=== PATIENT | female | born 1985 | race Caucasian/White ===

== ENCOUNTER 2017-08-07 13:24 | Emergency (ER) | payer SELFPAY ==
[2017-08-07 13:36] VITALS: TEMP 36.6
--- NOTE | 2017-08-07 14:29 | DIAGNOSTIC IMAGING REPORT ---
L FOOT MIN 3 VIEWS ROUTINE CLINICAL HISTORY: Left foot pain.] For fracture. COMPARISON: Left foot radiographs July 19, 2012. FINDINGS: There is a healed fracture of the mid to distal shaft of the left fifth metatarsal. A 5 mm sclerotic lesion within the navicular is unchanged. This is benign. No acute fracture is identified. Tarsometatarsal joints are intact. There is mild posterior and plantar calcaneal spurring. IMPRESSION: 1. No acute fracture or dislocation within the left foot. 2. Healed left fifth metatarsal fracture. 3. Mild posterior and plantar calcaneal spurring. Electronically signed by: Fady Mckinnon M.D. 08/07/2017 2:28 PM Dictated Date/Time: 08/07/2017 2:26 PM
--- NOTE | 2017-08-07 14:44 | EMERGENCY ROOM VISIT NOTE ---
ED Visit Note First contact with patient: 14:05 CHIEF COMPLAINT: Left foot pain HISTORY of present illness: This 32-year-old female presents the ER with chief complaint of left foot pain. The patient states that she was walking on Wednesday and all of a sudden got a sharp pain across the top of her foot. The patient states it hurts to bear weight. The patient went to [facility] on where they did an x-ray stated it was negative and placed her in a postop shoe. The patient states it is not getting any better. The patient does admit to a prior fracture to the foot. The patient has been taking Tylenol without any relief of the pain. The patient cannot have ibuprofen since she had a gastric bypass. REVIEW OF SYSTEMS: 6 system review was performed and was negative unless stated otherwise in history of present illness. PMH: The patient is healthy; gastric bypass, cholecystectomy, , migraines, spinal stenosis, anemia, mouth or patient, SOCIAL HISTORY: The patient admits to tobacco use and occasional alcohol use. PHYSICAL EXAM: Vital Signs: Were reviewed Reviewed Nurse's notes. GENERAL: 32- year-old white female appears in no acute distress. MENTAL Status: Alert and oriented 3. LEFT Foot: No gross bony deformity noted. No erythema or edema noted. The patient is tender to palpation over both the plantar and dorsal aspect of the metatarsal region. Increased pain with squeezing the metatarsals. Full range of motion of the digits without any difficulty. EMERGENCY DEPARTMENT COURSE: The patient was evaluated. X-ray of the foot was ordered through triage and was interpreted by the radiologist as below. DIAGNOSTICS:L FOOT MIN 3 VIEWS ROUTINE CLINICAL HISTORY: Left foot pain.] For fracture. COMPARISON: Left foot radiographs July 19, 2012. FINDINGS: There is a healed fracture of the mid to distal shaft of the left fifth metatarsal. A 5 mm sclerotic lesion within the navicular is unchanged. This is benign. No acute fracture is identified. Tarsometatarsal joints are intact. There is mild posterior and plantar calcaneal spurring. IMPRESSION: 1. No acute fracture or dislocation within the left foot. 2. Healed left fifth metatarsal fracture. 3. Mild posterior and plantar calcaneal spurring. Electronically signed by: Fady Mckinnon M.D. 08/07/2017 2:28 PM Dictated Date/Time: 08/07/2017 2:26 PM The patient was informed of the findings. The patient was discharged home in stable condition. TREATMENT: Ice and elevation for one day. Take Tylenol as needed for pain. Take [place] as needed for more severe pain. Do not take Tylenol while you're taking the [place]. Do not drive while taking the [place]. Recommend wearing a shoe with a good arch support. Ice her foot after standing or walking for any distance. If symptoms persist, follow-up with your family doctor for referral to orthopedics. DIAGNOSIS: Metatarsalgia left foot Allergies Coded Allergies: CI Pigment Blue 63 (Unverified Allergy, Unknown, RASH, DIGS SELF OPEN , ) Duloxetine (Unverified Allergy, Unknown, RASH, DIGS SELF OPEN , 09/13/16) Tramadol (Unverified Allergy, Unknown, HIVES , 09/13/16) Vital Signs Date Time Temp Pulse Resp B/P (MAP) Pulse Ox O2 Delivery O2 Flow Rate FiO2 08/07/17 13:36 36.6 76 20 168/140 94 Room Air Departure Information Referrals Keeley Becker M.D. (PCP) Patient Instructions My [facility]
[2017-08-07] MEDS ORDERED: HYDR-5688 PO (14:46)
[2017-08-07 14:59] VITALS: BP 177/110; PULSE 98; O2SAT 100
== END 2017-08-07 15:00 | disposition home or self-care (01) ==
LOC: C.EDB 13:26 → C.EDD 15:00
DX: M77.42 Metatarsalgia, left foot (principal); Z87.81 Personal history of (healed) traumatic fracture; F17.200 Nicotine dependence, unspecified, uncomplicated

== ENCOUNTER 2018-04-12 17:27 | Emergency (ER) | payer OTHER ==
[~2018-04-12] VITALS: Ht 162.6 cm; Wt 82.8 kg
[~2018-04-12 17:27] MED LIST: BACL10TA PO; DICY10CA12 PO; ELET40TA PO; ESCI1TAB10 PO; LEVE500T13 PO
[2018-04-12 17:39] VITALS: TEMP 36.9; Ht 162.6 cm; Wt 82.8 kg
[2018-04-12] MEDS ORDERED: NAPR-22 PO (18:17)
[2018-04-12] MEDS ORDERED: ELET40TA PO (18:17)
[2018-04-12] MEDS ORDERED: ESCI5TAB PO (18:17)
[2018-04-12 19:00] VITALS: BP 115/76; PULSE 88; O2SAT 96
--- NOTE | 2018-04-12 19:34 | EMERGENCY ROOM VISIT NOTE ---
History Report prepared by Grace: Yessy Isabel Under the Supervision of: Dr. Tavia August M.D. First contact with patient: 17:38 Chief Complaint: PELVIC PAIN Stated Complaint: SEVERE PELVIC PAIN History of Present Illness The patient is a 33 year old female who presents to the Emergency Room with complaints of intermittent pelvic pain starting 1.5 years ago. The patient states that her pain has been getting worse and to the point that she is passing out from it being so bad. She notes that yesterday she passed out while standing up and fell. She states that she woke up on the floor and had back pain. The patient states that she has been seen by her OB-PROPERTY ANALYST in [place] for this and they have run a few tests. She states that she had STD tests and endometrial biopsies that were negative. She notes that she had a pelvic exam done yesterday by them that was normal. She reports that she is scheduled for a D&C next month. She reports that she was told to come to the ED if she continues to pass out from the pain. The patient states that she has been taking Extra Strength Tylenol in mass amount and her Baclofen as prescribed. She notes that it is for her chronic back problems. She notes that she has not taken any NSAIDS due to a gastric bypass. The patient complains of not being able to sleep or eat. The patient denies urinary symptoms, irregular bowel movements, and the chance of . She notes that all her scratches are because she scratches herself in her sleep and she has some allergies to medications. Source of History: patient Onset: 1.5 years ago Position: pelvis Timing: intermittent Modifying Factors (Relieving): tylenol, other (Baclofen) Associated Symptoms: + LOC, + back pain, No urinary symptoms Note: The patient complains of not being able to eat or sleep. The patient denies irregular bowel movements. Review of Systems See HPI for pertinent positives & negatives. A total of 10 systems reviewed and were otherwise negative. Past Medical & Surgical Medical Problems: (1) Anemia (2) Bulging discs (3) Degenerative disc disease (4) Nicotine Dependence, Unspecified, Uncomplicated Surgical Problems: (1) History of delivery (2) History of cholecystectomy (3) History of gastric bypass (4) Hx of gastric bypass Family History FH: heart disease Hypertension Social History Smoking Status: Current Every Day Smoker Alcohol Use: none Drug Use: none Marital Status: single Housing Status: lives with family Occupation Status: unemployed Current/Historical Medications Scheduled Escitalopram Oxalate (Lexapro), 5 MG PO DAILY Naproxen (Naprosyn), 500 MG PO BID Scheduled PRN Baclofen (Lioresal), 10 MG PO TID PRN for Pain Eletriptan (Relpax), 40 MG PO DIRECTED PRN for onset of headache Allergies Coded Allergies: CI Pigment Blue 63 (Unverified Allergy, Unknown, RASH, DIGS SELF OPEN , ) Duloxetine (Unverified Allergy, Unknown, RASH, DIGS SELF OPEN , 04/12/18) Tramadol (Unverified Allergy, Unknown, HIVES , 04/12/18) Physical Exam Vital Signs Date Time Temp Pulse Resp B/P (MAP) Pulse Ox O2 Delivery O2 Flow Rate FiO2 04/12/18 19:00 88 20 115/76 96 Room Air 04/12/18 17:39 36.9 107 20 184/88 96 Room Air Physical Exam Vital signs reviewed. General: Odor of tobacco. Well-appearing, in no significant distress. HEENT: No scleral icterus, PERRLA, neck supple. Atraumatic. Cardiovascular: Regular rate and rhythm, no extra sounds. Pulmonary: Clear to auscultation bilaterally, normal work of breathing. Abdomen: Soft, mildly tender to palpation over the suprapubic region without specific point tenderness, rebound, or guarding. Nondistended, positive bowel sounds. Musculoskeletal: Atraumatic, no peripheral edema. Tenderness to palpation over the sacrum without ecchymosis or swelling. Toe touch is somewhat limited by discomfort to the lower back. Neurologic: Patient awake alert and oriented x 3, Ambulates without difficulty. Skin: Warm, dry. Multiple skin-picking lesions of different stages of healing to the upper back, right arm, upper chest, face, and bilateral legs. Medical Decision & Procedures Laboratory Results Test 04/12/18 17:52 Urine Color YELLOW Urine Appearance CLEAR (CLEAR) Urine pH 6.0 (4.5-7.5) Urine Specific [place] 1.003 (1.000-1.030) Urine Protein NEG (NEG) Urine Glucose (UA) NEG (NEG) Urine Ketones NEG (NEG) Urine Occult Blood NEG (NEG) Urine Nitrite NEG (NEG) Urine Bilirubin NEG (NEG) Urine Urobilinogen NEG (NEG) Urine Leukocyte Esterase NEG (NEG) Urine Test NEG (NEG) Urine Opiates Screen NEG (NEG) Urine Methadone, Qualitative NEG (NEG) Urine Barbiturates NEG (NEG) Urine Phencyclidine (PCP) Level NEG (NEG) Ur Amphetamine/Methamphetamine NEG (NEG) MDMA (Ecstasy) Screen NEG (NEG) Urine Benzodiazepines Screen NEG (NEG) Urine Cocaine Metabolite NEG (NEG) Urine Marijuana (THC) NEG (NEG) Laboratory results per my review. ED Course 1748: Past medical records reviewed. The patient was evaluated in room A4B. A complete history and physical examination was performed. 1756: I reviewed the patient's past records at this time. The patient was seen in the ED at [place] on February 19 and March 13. She was given a Percocet pack on the . She was seen again in the ED on March 18 and March 25. She was given Dilaudid or Toradol with each of her visits. She returned again to the ED on April 09 and had a pelvic ultrasound done. It showed free fluid in the cul de sac most likely physiological, a dominant left ovarian cyst or follicle, no evidence of torsion, and a normal appearance of her uterus. Her U-Tox was positive for Oxycodone only. She told the ED doctor at that time that she was using an excessive amounts of NSAIDS. She filled 12 tabs of Oxycodone 3 days ago. She went to her OB-PROPERTY ANALYST in [place] yesterday and had a pelvic exam performed per the patient. 1858: Upon reevaluation, the patient appeared to have improvement of her symptoms. I discussed findings with her. She verbalized agreement of the treatment plan. The patient was discharged home. Medical Decision Differential diagnoses include endometriosis, ovarian cyst, STD, ectopic , adhesions, menestrual pain, bony fractures, contusion. This patient was evaluated and appeared to be in some discomfort. Physical examination is fairly unrevealing. The patient is status post gastric bypass, now with the pelvic pain for the better part of 2 years. Patient has been at the [place] emergency department multiple times. She was there 3 days ago and given a prescription for Percocet, 12 tablets. The patient has had several ultrasounds of the pelvis performed there without any acute findings. She was seen by her [facility] P[employer] OPERATOR yesterday. Patient states she is having difficulty with pain control as her G[employer] P[employer] OPERATOR will not write for narcotics and she is not able to see pain management "because she does not have a diagnosis." At this time I do not think it is appropriate to give the patient any further narcotic therapy. She is ambulatory without difficulty. She has not lost control of her bowels or her bladder. She has some mild tenderness over the sacrum. The patient's skin picking lesions are concerning and I feel that her facility and physician shopping from >30 min drive away may represent narcotic seeking behavior. The patient was referred back to her physician and advised that it is not appropriate for the emergency department to continue narcotic therapy. She was discharged and was advised to return to the ED for worsening of symptoms or any medical concerns. [place] Drug Monitoring Program Search Results: patient reviewed within database Drug Monitoring Findings: Concerning for multiple Oxycodone prescriptions in the last 8 months. Medication Reconcilliation Current Medication List: was personally reviewed by me Blood Pressure Screening Patient's blood pressure: Elevated blood pressure Blood pressure disposition: Elevated BP felt to be situational Impression Primary Impression: Chronic pelvic pain in female Scribe Attestation The scribe's documentation has been prepared under my direction and personally reviewed by me in its entirety. I confirm that the note above accurately reflects all work, treatment, procedures, and medical decision making performed by me. Departure Information Dispostion Home / Self-Care Referrals Yevgeniy Garcia DO (PCP) Forms HOME CARE DOCUMENTATION FORM, IMPORTANT VISIT INFORMATION, WORK / SCHOOL INSTRUCTIONS Patient Instructions My [facility] Additional Instructions Diagnosis: Pelvic pain, chronic Please tylenol only as directed, no more than 3 gm/24 hours. Take 1000 mg every 6-8 hours as needed for pain. Do not use ibuprofen more than occasionally as you have had gastric bypass. Consider warm compresses to the lower abdomen. Follow up with your OBGYN for further management. Return to the ED for worsening of symptoms or any medical concerns.
== END 2018-04-12 19:14 | disposition home or self-care (01) ==
LOC: C.EDB 17:29 → C.EDA 19:14
DX: R10.2 Pelvic and perineal pain (principal); D64.9 Anemia, unspecified; M51.36 Other intervertebral disc degeneration, lumbar region; F17.210 Nicotine dependence, cigarettes, uncomplicated; Z98.84 Bariatric surgery status; Z82.49 Family history of ischemic heart disease and other diseases of the circulatory system; Z88.8 Allergy status to other drugs, medicaments and biological substances